=== PATIENT | male | born 1995 | race African-American/Black ===

== ENCOUNTER 2022-08-23 13:25 | Emergency (ER) | payer MEDICAID, SELFPAY ==
[2022-08-23 13:26] VITALS: BP 116/75; PULSE 68; RESP 15; TEMP 36.4; O2SAT 100; BMI 22.3
[2022-08-23 13:59] VITALS: RESP 18
--- NOTE | 2022-08-23 14:02 | EDS_ITS ---
HPI History of Present Illness Chief Complaint: Back Informant: patient Narrative Narrative: Worsening low back pain since yesterday states radiates up his back. No pain down the legs. Symptoms worse with movement. He took Aleve yesterday. No relief. He states he had similar issues in the past which was self-limiting and never evaluated. He is from [place]. He states never went to the ER for this. He denies any illicit drug use. Denies IV drug use. No fevers. He recently moved to the area. Patient was helping his father move the day prior. Prior similar symptoms: Yes PFSH PFSH Home Medications etodolac 300 mg capsule 300 mg PO TIDCM ##30 06/30/16 [Rx Last Taken Unknown] naproxen 500 mg tablet 500 mg PO BID PRN #20 tabs 08/23/22 [Rx Last Taken Unknown] prednisone 20 mg tablet 40 mg PO DAILY #10 tabs 08/23/22 [Rx Last Taken Unknown] Allergy/AdvReac Type Severity Reaction Status Date / Time ibuprofen [From Motrin] Allergy Hives Verified 08/23/22 13:26 Social History Smoking Status: Current every day smoker ROS ROS ED Constitutional Constitutional ED: Denies chills, fever(s) or sweats Eyes Eyes: Denies change in vision ENT ENT ED: Denies dysphagia or sore throat Cardiovascular Cardiovascular: Denies chest pain, leg edema, palpitations or racing heartbeat Respiratory/Chest Respiratory/Chest: Denies cough, dyspnea or dyspnea on exertion Gastrointestinal Gastrointestinal: Denies abdominal pain, diarrhea, nausea or vomiting Genitourinary Genitourinary ED: Denies dysuria, hematuria or urinary frequency Musculoskeletal Musculoskeletal: Reports back pain; Denies extremity pain or neck pain Integumentary Denies rash or wounds Neurologic Neurologic: Denies headache(s), paresthesias or weakness EXAM Physical Exam Const Vital Signs: 08/23/22 13:26 Temperature 97.5 F L Temperature Source Temporal Pulse Rate 68 Respiratory Rate 15 Blood Pressure 116/75 Blood Pressure Mean 88 Pulse Ox 100 Oxygen Delivery Method Room Air Positive well nourished and well developed General Appearance ED: well developed and NAD HEENT Reports moist mucous membranes normocephalic and atraumatic Eyes PERRL, EOMs intact bilaterally and conjunctivae normal General Eye ED: Yes normal appearance of both eyes Neck no lymphadenopathy and supple General: Negative for tenderness Chest Wall Chest: Negative for tenderness Resp normal respiratory effort and normal air movement Effort and Inspection: symmetric chest movement; Negative for respiratory distress Cardio regular rate, regular rhythm and no murmurs Peripheral Pulses: pulses 2+ throughout GI normal to inspection, nondistended, normoactive bowel sounds and non-tender Palpation: Negative for guarding or rebound tenderness present Back/Spine no CVA tenderness Back/Spine Narrative: No midline tenderness. There is tenderness in the lower lumbar left parathoracic reproducible. Straight leg test was negative bilaterally. 1+ patellar reflex bilaterally. Extremity normal to inspection General Extremety ED: Negative for edema or tenderness General Extremity: Negative for edema Neuro oriented x3 and no sensory deficits noted Sensorium / Orientation: awake and alert Skin no rashes or lesions noted and no wounds MDM MDM MDM Narrative Medical decision making narrative: Patient exam concerns for a lumbar strain. Denies any loss of bowel or bladder control. No cauda equina symptoms. Walking favoring lower back. Somatic function lower lumbar spine. He agreed with osteopathic manipulation bedside. HVLA lower lumbar spine each side performed with improvement of symptoms. Improved motion and ambulation. Tolerate Aleve therefore naproxen was written along with steroids to help with symptoms to continue oral fluids. He is given follow-up as an outpatient. Procedure note: Osteopathic manipulation. Verbal consent. Right lateral recumbent, HVLA lower lumbar spine along with left side HVLA on the left lateral come back. Patient tolerated procedure well. Discharge Plan Triage Chief Complaint: Back ED Provider: Rolo Salcido Dx/Rx/DC Orders Clinical Impression: Lumbosacral strain, Low back pain, Somatic dysfunction of spine, lumbar Instructions: ED Back Sprain/Strain Prescriptions: New prednisone 20 mg tablet 40 mg PO DAILY Qty: 10 0RF Rx Instructions: Next dose 08/24/2022 naproxen 500 mg tablet 500 mg PO BID PRN Qty: 20 0RF No Action etodolac 300 MG capsule 300 mg PO TIDCM Qty: 30 0RF Rx Instructions: with food Primary Care Provider: Care Physician,No Primary Referrals: Lakia Rosenbaum [Non-Staff] - 1 Week if not improving Care Physician,No Primary [Primary Care Provider] - Disposition Disposition: Home, Self Care
[2022-08-23] MEDS: predniSONE 20 MG Tablet 40 MG PO (14:05)
[2022-08-23] MEDS: Naproxen 250 MG Tablet 500 MG PO (14:05)
== END 2022-08-23 14:10 | disposition home or self-care (01) ==
LOC: ED 14:05
PROVIDERS: Emergency Provider Emergency Medicine; Visit Provider Emergency Medicine
DX: S39.012A Strain of muscle, fascia and tendon of lower back, initial encounter (principal); M99.03 Segmental and somatic dysfunction of lumbar region; F17.200 Nicotine dependence, unspecified, uncomplicated; Z79.52 Long term (current) use of systemic steroids; X58.XXXA Exposure to other specified factors, initial encounter
CPT/HCPCS: 99283

== ENCOUNTER 2025-03-10 13:56 | Emergency (ER) | payer MEDICAID, SELFPAY ==
[2025-03-10 13:57] VITALS: BP 136/103; PULSE 84; RESP 18; TEMP 36.6; O2SAT 99; BMI 21.9
--- NOTE | 2025-03-10 14:19 | EX.ED.GENINJ ---
HPI History of Present Illness Chief Complaint: Other, Pain/Inj Narrative Narrative: 29-year-old male who denies significant past medical history states that approximately 2 days ago he was lifting things at work when he felt a pop on the left side of his neck. He thought it was okay but over the last few days, his neck has gotten stiffer and he has pain when he moves his head. He denies any fevers or chills, no loss of bowel or bladder. He describes a sharp, burning pain that radiates along his trapezius and into his shoulder. He denies other injury. He states he does not want to claim Workmen's Comp. [id number]. PFSH PFS Medical History no medical history Home Medications ?Medication ?Instructions ?Recorded ?Last Taken ?Type etodolac 300 mg capsule 300 mg PO TIDCM ##30 06/30/16 Unknown Rx naproxen 500 mg tablet 500 mg PO BID PRN #20 tabs 08/23/22 Unknown Rx prednisone 20 mg tablet 40 mg (2 x 20 mg) PO DAILY #10 tabs 08/23/22 Unknown Rx cyclobenzaprine 10 mg tablet 10 mg PO TID PRN Muscle Spasm #20 03/10/25 Unknown Rx TABLETS naproxen 500 mg tablet (Naprosyn) 500 mg PO BID PRN pain #20 tabs 03/10/25 Unknown Rx Allergy/AdvReac Type Severity Reaction Status Date / Time ibuprofen (From Motrin) Allergy Hives Verified 03/10/25 13:59 Social History Smoking Status: Current every day smoker tobacco type: cigarettes ROS ROS ED ROS Narrative Review of systems positive for left-sided neck pain radiating to left shoulder/trapezius. No fevers or chills. Pain worse when he moves his head. Complains of stiff neck mainly on the left side. Denies other injury. EXAM Physical Exam Narrative Exam Narrative: GCS 15. ABCs intact. Cardiovascular examination reveals a regular rate and rhythm. Lungs are clear to auscultation bilaterally. The abdomen is soft, nontender, without guarding or rebound. Positive bowel sounds. Neurological examination is nonfocal, nonlateralizing. He is able to raise his arms above his head. Range of motion and turning his head [id number] is limited secondary to pain. Mild tenderness to palpation on the left paraspinal musculature. No crepitance or erythema noted. No vertebral point tenderness or bony step-off. Neurovascularly intact to the left upper extremity with palpable radial pulse. Able to oppose thumb. No clinical dislocation of the left shoulder. Const Vital Signs: 03/10/25 13:57 03/10/25 14:42 Temperature 97.8 F Temperature Source Oral Pulse Rate 84 Respiratory Rate 18 Respiratory Effort Normal Respiratory Pattern Normal Blood Pressure 136/103 H Blood Pressure Mean 114 Pulse Ox 99 Oxygen Delivery Method Room Air MDM MDM MDM Narrative Medical decision making narrative: The differential diagnosis includes but not limited to left trapezial strain versus left paraspinal muscle/ligament strain or sprain versus cervical radiculomyelopathy. I have low suspicion for cervical neck fracture. I reviewed the patient's medication list and he has been prescribed naproxen previously. He was given naproxen and Flexeril orally here. Once again, he states he does not want to file a [facility] claim. X-rays will be obtained to help rule out fracture and look for cervical spinal alignment as well. He may have loss of cervical lordosis secondary to muscle spasm. On my independent interpretation of the x-rays of the cervical spine there is no evidence of an acute fracture. There is no loss of cervical lordosis most likely secondary to muscle spasm as noted as well on review of the radiology report. It does confirm my independent interpretation. At this point in time, he was given a note to be off work for the next 2 shifts. He was written prescriptions for cyclobenzaprine and for naproxen. He has been prescribed naproxen previously and tolerated it although he has an allergy to ibuprofen in the form of hives. He was referred to a primary care provider here in the area. At this point in time I feel he can be discharged to follow-up. Return instructions to the emergency department were reviewed. Disposition is discharged home in stable condition. History & Record Review Discussion w/independent historian: Patient Radiography Diagnostic Testing: Clinical Impression(s) from Imaging Studies Cervical Spine X-Ray 03/10/25 14:30 IMPRESSION: Loss of the normal cervical lordosis most likely secondary to muscle spasm. Disclaimer: Reading Location: [facility] Discharge Plan Triage Chief Complaint: Other, Pain/Inj ED Provider: Netwon Olmstead Dx/Rx/DC Orders Clinical Impression: Cervical sprain, Neck and shoulder pain Instructions: ED Neck Pain, ED Neck Sprain or Strain Prescriptions: New naproxen [Naprosyn] 500 mg tablet 500 mg PO BID PRN (Reason: pain) Qty: 20 0RF cyclobenzaprine 10 mg tablet 10 mg PO TID PRN (Reason: Muscle Spasm) Qty: 20 0RF No Action etodolac 300 MG capsule 300 mg PO TIDCM Qty: 30 0RF Rx Instructions: with food prednisone 20 mg tablet 40 mg PO DAILY Qty: 10 0RF Rx Instructions: Next dose 08/24/2022 naproxen 500 mg tablet 500 mg PO BID PRN Qty: 20 0RF Stand Alone Forms: ED Work / School Excuse Primary Care Provider: Care Physician,No Primary Referrals: Raphael Bauman MD [Med Staff - Active Staff] - 1 Week if not improving Care Physician,No Primary [Primary Care Provider] - Activity Restrictions/Additional Instructions: Anti-inflammatory and muscle relaxer as directed. Do not take if driving a motor vehicle or operating heavy machinery as it may make you drowsy. Return with new or worsening symptoms. Follow-up primary care. Print Language: [place] Citizen Disposition Disposition: Home, Self Care
--- NOTE | 2025-03-10 14:30 | RAD_ITS ---
PROCEDURE: CERV SPINE 2 OR 3 VIEWS 03/10/2025 REASON FOR EXAM: PAIN TECHNIQUE: 3 views of the cervical spine. COMPARISON: None FINDINGS: Vertebrae: Unremarkable. disc spaces: Well-maintained Alignment: Loss of the normal cervical lordosis most likely secondary to muscle spasm. soft tissues: Unremarkable Other: RAD/Cerv Spine 2 or 3 Views IMPRESSION: Loss of the normal cervical lordosis most likely secondary to muscle spasm. Disclaimer: Reading Location: [place] [id number]
[2025-03-10] MEDS: Naproxen 500 MG Tablet PO (14:39)
[2025-03-10] MEDS: cycloBENZAPRine HCl 10 MG Tablet PO (14:39)
[2025-03-10 15:05] VITALS: BP 132/78; PULSE 84; RESP 18; TEMP 36.6; O2SAT 99
== END 2025-03-10 15:06 | disposition home or self-care (01) ==
PROVIDERS: Emergency Provider Emergency Medicine; Visit Provider Emergency Medicine
DX: S13.4XXA Sprain of ligaments of cervical spine, initial encounter (principal); X50.0XXA Overexertion from strenuous movement or load, initial encounter; Y99.0 Civilian activity done for income or pay; F17.210 Nicotine dependence, cigarettes, uncomplicated; M25.512 Pain in left shoulder
CPT/HCPCS: 72040; 99283